=== PATIENT | female | born 1975 | race Hispanic/Latino ===

== ENCOUNTER 2024-11-13 13:30 | Emergency (ER) | payer OTHER ==
[~2024-11-13] VITALS: Ht 154.9 cm; Wt 97.1 kg
[2024-11-13 13:43] VITALS: TEMP 98.2
[2024-11-13] MEDS ORDERED: AMOX TR-K CLV1 EAC2 PO (13:52)
[2024-11-13] MEDS ORDERED: IBUPROFEN600 MG PO (13:53)
[2024-11-13] MEDS: AMOXICILLIN/CLAVULANATE K 875 MG TAB PO STA (14:04)
[2024-11-13] MEDS: IBUPROFEN 600 MG TAB PO STA (14:08)
[2024-11-13 15:23] VITALS: PULSE 95; RESP 18
[2024-11-13 15:44] VITALS: BP 141/85; PULSE 95; O2SAT 96
== END 2024-11-13 15:42 | disposition home or self-care (01) ==
LOC: FSED 13:34
DX: H92.01 Otalgia, right ear (principal); I10 Essential (primary) hypertension; R00.0 Tachycardia, unspecified; E03.9 Hypothyroidism, unspecified; D64.9 Anemia, unspecified; R94.31 Abnormal electrocardiogram [ECG] [EKG]
CPT/HCPCS: 93005; 99284